=== PATIENT | female | born 1940 | race Caucasian/White ===

== ENCOUNTER 2020-05-16 12:32 | Outpatient (CLI) | payer OTHER ==
[2020-05-17 01:27] LABS: SARS-CoV-2 PCR by NAA Not Detected (NotDetected)
== END 2020-05-16 12:33 | disposition home or self-care (01) ==
LOC: LABBT 12:32
PROVIDERS: ATTEND Family Medicine
DX: M43.16 Spondylolisthesis, lumbar region (principal); Z20.822 Contact with and (suspected) exposure to COVID-19
CPT/HCPCS: 87635; U0003; U0005

== ENCOUNTER 2020-05-16 13:00 | Inpatient (IN) | payer MEDICARE ==
[2020-05-19] MEDS ORDERED: EPINEPHrine 1 MG/ML AMP ONE (06:13)
[2020-05-19] MEDS ORDERED: Thrombin 5000 UNITS/5 ML VIAL ONE (06:13)
[2020-05-19] MEDS ORDERED: Bupivacaine PF 0.5% 30 ML VIAL ONE (06:13)
[2020-05-19] MEDS ORDERED: Fentanyl 100 MCG/2 ML VIAL ONE ×5 (06:42→14:03)
[2020-05-19 06:44] LABS: #Basophils 0.1 thou/uL (0.0-0.2); #Eosinphils 0.2 thou/uL (0.0-0.7); #Lymphocytes 1.7 thou/uL (1.20-3.40); #Neutrophils 11.5 thou/uL (1.40-6.50); %Basophils 0.4 % (0.0-1.0); %Eosinophils 1.2 % (0.0-10.0); %Monocytes 7.1 % (0.0-10.0); %Neutrophils 79.3 % (42.0-75.0); Mean Corpuscular HGB CONC 33.9 g/dL (32.0-36.0); Mean Corpuscular Hemoglobin 33.5 pg (27.0-31.0); Mean Corpuscular Volume 98.8 fL (78.0-98.0); Mean Platelet Volume 6.5 fL (7.4-10.4); Platelet Count 316 thou/uL (130-400); RBC Distribution Width 11.1 % (11.5-14.5); Red Blood Cell (RBC) Count 3.88 mill/uL (4.20-5.40); White Blood Cell (WBC) Count 14.5 thou/uL (4.8-10.8)
[2020-05-19] MEDS ORDERED: Ketorolac Tromethamine 30 MG/ML VIAL ONE (06:58)
[2020-05-19] MEDS ORDERED: Naloxone HCl 0.4 mg/ml Vial ONE ×2 (06:58→13:27)
[2020-05-19] MEDS ORDERED: Metoclopramide HCl 10 MG/2 ML VIAL ONE (06:58)
[2020-05-19] MEDS ORDERED: Lidocaine 1% PF 5 ML VIAL ONE (06:58)
[2020-05-19] MEDS ORDERED: Dexamethasone 20 MG/5 ML VIAL ONE (06:58)
[2020-05-19] MEDS ORDERED: PROPOFOL 200 MG/20 ML VIAL ONE (06:58)
[2020-05-19] MEDS ORDERED: Rocuronium Bromide 10 MG/ML (10ML VIAL) ONE (06:58)
[2020-05-19] MEDS ORDERED: ePHEDrine 50 MG/ML VIAL ONE (06:58)
[2020-05-19] MEDS ORDERED: Ondansetron PF 4 MG/2 ML Vial ONE ×2 (06:58→13:36)
[2020-05-19] MEDS ORDERED: Metoprolol Tartrate 5 MG/5 ML VIAL ONE ×2 (06:58→13:27)
[2020-05-19] MEDS ORDERED: Promethazine HCl 25 MG/ML VIAL SLOW IVP PRN (10:20)
[2020-05-19] MEDS ORDERED: HYDROmorphone 2 MG/ML VIAL SLOW IVP PRN (10:20)
[2020-05-19] MEDS ORDERED: Ondansetron HCl/PF 4 MG/2 ML Vial IVP PRN (10:20)
[2020-05-19] MEDS ORDERED: SUGAMMADEX SODIUM 200 MG/2 ML VIAL ONE (10:37)
[2020-05-19] MEDS ORDERED: Morphine 2 MG/ML VIAL SLOW IVP PRN (13:15)
[2020-05-19] MEDS ORDERED: HYDROcodone/Acetaminophen 10/325 mg Tablet PO PRN (13:15)
[2020-05-19] MEDS ORDERED: diphenhydrAMINE 50 MG/ML VIAL IVP PRN (13:15)
[2020-05-19] MEDS ORDERED: diphenhydrAMINE 25 MG CAP PO PRN (13:15)
[2020-05-19] MEDS ORDERED: Promethazine 25 MG TAB PO PRN (13:15)
[2020-05-19] MEDS ORDERED: tiZANidine HCl 4 MG TAB PO PRN (13:15)
[2020-05-19] MEDS ORDERED: Promethazine HCl 25 MG/ML VIAL IM PRN (13:15)
[2020-05-19] MEDS ORDERED: HYDROmorphone 0.5 MG/0.5 ML SYRINGE ONE (13:55)
[2020-05-19] MEDS: CEFAZOLIN 2 GM in Premix Bag 1 BAG IVPB SCH ×2 (16:16→20:58)
[2020-05-19] MEDS ORDERED: hydrALAZINE 20 MG/ML VIAL SLOW IVP PRN (20:14)
[2020-05-20] MEDS: Levothyroxine Sodium 25 MCG TAB PO SCH (05:27)
[2020-05-20] MEDS: CEFAZOLIN 2 GM in Premix Bag 1 BAG IVPB SCH (05:28)
[2020-05-20] MEDS: Acetaminophen 325 MG TAB PO PRN ×3 (05:28→20:39)
[2020-05-20] MEDS: Atorvastatin Calcium 20 MG TAB PO SCH (08:10)
[2020-05-20] MEDS ORDERED: Valsartan 80 MG TAB PO SCH (09:00)
[2020-05-20] MEDS ORDERED: Sodium Chloride 0.9% 250 ML IV SCH (09:00)
[2020-05-20 10:02] VITALS: BMI 23.3
[2020-05-20] MEDS: Sodium Chloride 0.9% 1,000 ML IV SCH ×2 (10:17→23:30)
[2020-05-20 11:36] LABS: Anion Gap 13 mmol/L (10-20); BUN (Urea Nitrogen) 22 mg/dL (9.8-20.1); Calc. Creatinine Clearance 36 mL/min (70-130); Calcium 7.9 mg/dL (7.8-10.44); Carbon Dioxide 27 mmol/L (23-31); Chloride 102 mmol/L (98-107); Glucose 128 mg/dL (83-110); Magnesium 1.6 mg/dL (1.6-2.6); Phosphorus 3.1 mg/dL (2.3-4.7); Potassium 4.3 mmol/L (3.5-5.1); Sodium 138 mmol/L (136-145)
[2020-05-20] MEDS ORDERED: Magnesium Sulfate 4 GM in Sodium Chloride 0.9% 250 ML 250 ML IVPB SCH (12:15)
[2020-05-21] MEDS: HYDROcodone/Acetaminophen 10/325 mg Tablet PO PRN ×2 (02:35→19:40)
[2020-05-21 04:24] LABS: Bacteria/HPF None Seen HPF (None Seen); Bilirubin Negative (Negative); Blood, Urine Trace (Negative); Clarity Clear (Clear); Glucose, Urine (Dipstick) Normal (Negative); Ketone, Urine Negative (Negative); Leukocyte 25 Leu/uL (Negative); Nitrite Negative (Negative); Protein, Urine (Dipstick) Negative (Neg-Trace); RBC/HPF 0-3 HPF (0-3); Specific Gravity, Urine 1.009 (1.002-1.036); Squamous Epithelial 0-3 HPF (0-3); Urobilinogen Normal mg/dL (Less than 2); pH, Urine 5.5 (5.0-9.0)
[2020-05-21 04:26] LABS: Urine Culture Reflex Yes Yes
[2020-05-21 05:11] LABS: #Basophils 0.1 thou/uL (0.0-0.2); #Eosinphils 0.1 thou/uL (0.0-0.7); #Lymphocytes 1.5 thou/uL (1.20-3.40); #Monocytes 1.5 thou/uL (0.11-0.59); %Basophils 0.5 % (0.0-1.0); %Eosinophils 0.7 % (0.0-10.0); %Lymphocytes 11.3 % (21.0-51.0); %Monocytes 11.3 % (0.0-10.0); %Neutrophils 76.2 % (42.0-75.0); Mean Corpuscular HGB CONC 31.9 g/dL (32.0-36.0); Mean Corpuscular Hemoglobin 31.8 pg (27.0-31.0); Mean Corpuscular Volume 99.6 fL (78.0-98.0); Mean Platelet Volume 6.6 fL (7.4-10.4); Platelet Count 220 thou/uL (130-400); RBC Distribution Width 11.4 % (11.5-14.5); Red Blood Cell (RBC) Count 2.82 mill/uL (4.20-5.40); White Blood Cell (WBC) Count 13.2 thou/uL (4.8-10.8)
[2020-05-21 05:27] LABS: ALT (SGPT) 46 U/L (8-55); AST (SGOT) 103 U/L (5-34); Albumin 3.4 g/dL (3.4-4.8); Alkaline Phosphatase 91 U/L (40-110); Anion Gap 11 mmol/L (10-20); BUN (Urea Nitrogen) 16 mg/dL (9.8-20.1); Bilirubin, Total 0.4 mg/dL (0.2-1.2); CRP (Inflammatory) 21.06 mg/dL (= or < 0.5); Calc. Creatinine Clearance 46 mL/min (70-130); Calcium 7.9 mg/dL (7.8-10.44); Carbon Dioxide 23 mmol/L (23-31); Chloride 107 mmol/L (98-107); Globulin 2.4 g/dL (2.4-3.5); Glucose 103 mg/dL (83-110); Potassium 4.1 mmol/L (3.5-5.1); Protein, Total 5.8 g/dL (5.8-8.1); Sodium 137 mmol/L (136-145)
[2020-05-21] MEDS: Levothyroxine Sodium 25 MCG TAB PO SCH (05:51)
[2020-05-21] MEDS: Atorvastatin Calcium 20 MG TAB PO SCH (08:31)
[2020-05-21] MEDS ORDERED: Sodium Chloride 0.9% 500 ML IV SCH (14:00)
[2020-05-22] MEDS: Levothyroxine Sodium 25 MCG TAB PO SCH (06:13)
[2020-05-22] MEDS: Atorvastatin Calcium 20 MG TAB PO SCH (08:38)
[2020-05-22] MEDS: HYDROcodone/Acetaminophen 10/325 mg Tablet PO PRN (11:46)
[2020-05-23] MEDS: Levothyroxine Sodium 25 MCG TAB PO SCH (05:45)
[2020-05-23] MEDS: HYDROcodone/Acetaminophen 10/325 mg Tablet PO PRN (09:09)
[2020-05-23] MEDS: Atorvastatin Calcium 20 MG TAB PO SCH (09:09)
[2020-05-23 16:38] VITALS: BP 122/72; TEMP 98
== END 2020-05-23 16:59 | disposition home or self-care (01) | DRG 454 ==
LOC: SURG A 05-19 05:33 → EDSTATUS 05-19 13:00 → SJJU 05-19 15:41
PROVIDERS: ADMIT Neurological Surgery; ATTEND Neurological Surgery
PROC: 0SG00AJ Fusion of Lumbar Vertebral Joint with Interbody Fusion Device, Posterior Approach, Anterior Column, Open Approach (ICD-10-PCS; principal; 2020-05-19)
PROC: 0SG0071 Fusion of Lumbar Vertebral Joint with Autologous Tissue Substitute, Posterior Approach, Posterior Column, Open Approach (ICD-10-PCS; 2020-05-19)
PROC: 01NB0ZZ Release Lumbar Nerve, Open Approach (ICD-10-PCS; 2020-05-19)
PROC: 01NR0ZZ Release Sacral Nerve, Open Approach (ICD-10-PCS; 2020-05-19)
PROC: 30233N1 Transfusion of Nonautologous Red Blood Cells into Peripheral Vein, Percutaneous Approach (ICD-10-PCS; 2020-05-22)
DX: M48.062 Spinal stenosis, lumbar region with neurogenic claudication (principal); D62 Acute posthemorrhagic anemia; M43.16 Spondylolisthesis, lumbar region; Z20.822 Contact with and (suspected) exposure to COVID-19; M19.90 Unspecified osteoarthritis, unspecified site; E78.5 Hyperlipidemia, unspecified; E03.9 Hypothyroidism, unspecified; M81.0 Age-related osteoporosis without current pathological fracture; Z96.653 Presence of artificial knee joint, bilateral; K21.9 Gastro-esophageal reflux disease without esophagitis; G96.09 Other spinal cerebrospinal fluid leak; Y83.8 Other surgical procedures as the cause of abnormal reaction of the patient, or of later complication, without mention of misadventure at the time of the procedure; Z80.9 Family history of malignant neoplasm, unspecified; Z82.49 Family history of ischemic heart disease and other diseases of the circulatory system; Z79.899 Other long term (current) drug therapy; Z79.890 Hormone replacement therapy
CPT/HCPCS: 36415; 36430; 71045; 76000; 80048; 80053; 81001; 83735; 84100; 84145; 85018; 85025; 86140; 86850; 86900; 86901; 87086; 87635; 93005; 93010; C1713; C1768; J0171; J0690; J1100; J1170; J1885; J2310; J2405; J2704; J2765; J3010; J3370; J3475; J3490; J7050; P9016; Q0169; S0020; U0003; U0005